=== PATIENT | male | born 1970 | race Hispanic/Latino ===

== ENCOUNTER 2023-02-20 10:27 | Inpatient (IN) | payer SELFPAY ==
[~2023-02-20] VITALS: Ht 180.3 cm; Wt 102.6 kg
[2023-02-20] MEDS ORDERED: OMEPRAZOLE40 MG PO (11:45)
[2023-02-20] MEDS ORDERED: CLARITHROMYCIN500 MG PO (11:45)
[2023-02-20] MEDS ORDERED: AMOXICILLIN500 MG PO (11:45)
[2023-02-20] MEDS ORDERED: METHOCARBAMOL750 MG PO (11:45)
[2023-02-20] MEDS ORDERED: ANUSOL-HC30 GM RC (11:45)
[2023-02-20] MEDS ORDERED: ANUSOL-HC25 MG RC (11:45)
[2023-02-20] MEDS ORDERED: LIDOCAINE HCL 2% LOCAL INJ 5 ML SDV VIAL INJ ONE (12:15)
[2023-02-20] MEDS ORDERED: PROPOFOL IV EMULSION 10 MG/ML 20 ML VIAL ONE (12:15)
[2023-02-20] MEDS ORDERED: POVIDONE IODINE 0.05% 0.05 % ML PO ONE (12:15)
[2023-02-20] MEDS ORDERED: METOCLOPRAMIDE HCL 10 MG/2ML VIAL ONE (12:15)
[2023-02-20] MEDS ORDERED: ONDANSETRON HCL INJ 2MG/ML 2ML 2 MG/ML VIAL ONE (12:15)
[2023-02-20] MEDS ORDERED: FAMOTIDINE 20 MG/2 ML VIAL IV STA (12:48)
[2023-02-20] MEDS ORDERED: IOPAMIDOL 370 MG/ML 100 ML INFUS..BTL INJ ONE (13:03)
[2023-02-20] MEDS ORDERED: FAMOTIDINE 20 MG/2 ML VIAL IV ONE (13:08)
[2023-02-20] MEDS ORDERED: SODIUM CHLORIDE 0.9% 1000ML 1,000 ML IV SCH (13:30)
[2023-02-20] MEDS ORDERED: SODIUM CHLORIDE 0.9% 1000ML 1,000 ML ONE (13:38)
[2023-02-20] MEDS ORDERED: SODIUM CHLORIDE FLUSH 10 ML SYR INJ PRN (15:00)
[2023-02-20 17:02] VITALS: BP 132/79; PULSE 112; RESP 18; TEMP 98.2; O2SAT 97
[2023-02-20] MEDS ORDERED: ONDANSETRON HCL INJ 2MG/ML 2ML 2 MG/ML VIAL IV PRN (18:00)
[2023-02-20 18:12] LABS: HEMATOCRIT 44.8 % (38.2-49.6); HEMOGLOBIN 15.4 g/dL (14.0-18.0)
[2023-02-20] MEDS: SODIUM CHLORIDE 0.45% 1,000 ML IV SCH (18:20)
[2023-02-20 20:00] VITALS: BP_SYST 112; BP_SYST 123; BP_DIAS 81; BP_DIAS 84; PULSE 54; PULSE 64; RESP 18; TEMP 98.4; TEMP 98.7; O2SAT 97; O2SAT 99
[2023-02-20] MEDS: SENNOSIDES 8.6 MG TAB PO SCH (20:44)
[2023-02-20] MEDS: HYDROCORTISONE ACETATE 25 MG/SUPP.RECT SUPP RC SCH (20:44)
[2023-02-20 21:04] VITALS: BP 123/81; PULSE 54; RESP 16; TEMP 98.7; O2SAT 99
[2023-02-21] VITALS (7 sets, daily range): BP systolic 112–148; BP diastolic 59–89; PULSE 51–70; RESP 17–20; TEMP 97.1–98.6; O2SAT 97–100
[2023-02-21 06:51] LABS: BASOPHILS % 0.5 % (0.0-1.0); EOSINOPHILS # (AUTO) 0.1 (0.0-0.4); EOSINOPHILS % 1.6 % (0.0-6.0); HEMATOCRIT 44.8 % (38.2-49.6); HEMOGLOBIN 15.3 g/dL (14.0-18.0); LYMPHOCYTES # (AUTO) 2.8 (1.0-3.2); LYMPHOCYTES % 34.5 % (18.0-39.1); MEAN CORPUSCULAR HEMOGLOBIN 31.9 pg (28-32); MEAN CORPUSCULAR HGB CONC 34.2 g/dL (31-35); MEAN CORPUSCULAR VOLUME 93.5 fL (81-99); MONOCYTES # (AUTO) 0.7 (0.2-0.8); MONOCYTES % 8.3 % (4.4-11.3); NEUTROPHILS # (AUTO) 4.4 (2.1-6.9); NEUTROPHILS % 54.6 % (38.7-80.0); PLATELET COUNT 248 x10e3/uL (140-360); RED BLOOD COUNT 4.79 x10e6/uL (4.3-5.7); RED CELL DISTRIBUTION WIDTH 12.2 % (11.7-14.4)
[2023-02-21 06:59] LABS: ALBUMIN 3.8 g/dL (3.5-5.0); ALBUMIN/GLOBULIN RATIO 1.1 (0.8-2.0); ANION GAP 11.9 mmol/L (8-16); CALCIUM 9.2 mg/dL (8.4-10.2); CREATININE, SERUM 0.9 mg/dL (0.72-1.25); POTASSIUM 3.9 mmol/L (3.5-5.1)
[2023-02-21 09:10] LABS: CHOL/HDL RATIO 4.5 (3.9-4.7)
[2023-02-21] MEDS: HYDROCORTISONE ACETATE 25 MG/SUPP.RECT SUPP RC SCH ×2 (09:58→21:52)
[2023-02-21] MEDS: SENNOSIDES 8.6 MG TAB PO SCH ×2 (09:58→16:57)
[2023-02-21] MEDS: SODIUM CHLORIDE 0.45% 1,000 ML IV SCH (14:48)
[2023-02-22 04:00] VITALS: BP 110/77; PULSE 60; RESP 18; TEMP 98.8; O2SAT 98
[2023-02-22] MEDS: SODIUM CHLORIDE 0.45% 1,000 ML IV SCH ×2 (06:10→16:46)
[2023-02-22 06:46] LABS: BASOPHILS % 0.5 % (0.0-1.0); EOSINOPHILS # (AUTO) 0.1 (0.0-0.4); EOSINOPHILS % 1.7 % (0.0-6.0); HEMATOCRIT 46.6 % (38.2-49.6); HEMOGLOBIN 15.7 g/dL (14.0-18.0); LYMPHOCYTES # (AUTO) 2.8 (1.0-3.2); LYMPHOCYTES % 33.6 % (18.0-39.1); MEAN CORPUSCULAR HGB CONC 33.7 g/dL (31-35); MEAN CORPUSCULAR VOLUME 94.9 fL (81-99); MONOCYTES # (AUTO) 0.7 (0.2-0.8); MONOCYTES % 8.2 % (4.4-11.3); NEUTROPHILS # (AUTO) 4.6 (2.1-6.9); NEUTROPHILS % 55.6 % (38.7-80.0); PLATELET COUNT 229 x10e3/uL (140-360); RED BLOOD COUNT 4.91 x10e6/uL (4.3-5.7); RED CELL DISTRIBUTION WIDTH 12.2 % (11.7-14.4)
[2023-02-22 08:24] VITALS: BP 123/79; PULSE 55; RESP 16; TEMP 98.1; O2SAT 95
[2023-02-22] MEDS: HYDROCORTISONE ACETATE 25 MG/SUPP.RECT SUPP RC SCH ×2 (09:07→21:31)
[2023-02-22] MEDS: SENNOSIDES 8.6 MG TAB PO SCH ×2 (09:07→16:47)
[2023-02-22 13:25] VITALS: BP 126/79; PULSE 55; RESP 18; TEMP 97.9; O2SAT 96
[2023-02-22 16:20] VITALS: BP 126/81; PULSE 63; RESP 18; TEMP 98.3; O2SAT 98
[2023-02-22 21:54] VITALS: BP 143/82; PULSE 63; RESP 17; TEMP 97.7; O2SAT 99
[2023-02-22 22:00] VITALS: BP 143/82; PULSE 63; RESP 17; TEMP 97.7; O2SAT 99
[2023-02-23] VITALS (7 sets, daily range): BP systolic 109–131; BP diastolic 65–95; PULSE 54–84; RESP 17–19; TEMP 98.1–98.4; O2SAT 95–99
[2023-02-23] MEDS ORDERED: BISACODYL 5 MG TAB EC PO STA (00:06)
[2023-02-23] MEDS ORDERED: BISACODYL 5 MG TAB EC PO ONE ×2 (00:30→01:00)
[2023-02-23] MEDS ORDERED: CITRATE OF MAGNESIA 300ML BOTTLE PO ONE ×2 (05:00→09:00)
[2023-02-23] MEDS: SENNOSIDES 8.6 MG TAB PO SCH (08:50)
[2023-02-23] MEDS: HYDROCORTISONE ACETATE 25 MG/SUPP.RECT SUPP RC SCH (08:56)
[2023-02-23] MEDS ORDERED: SENOKOT8.6 MG PO (10:23)
[2023-02-23] MEDS ORDERED: PANTOPRAZOLE SO40 MG PO (10:23)
[2023-02-23] MEDS ORDERED: ONDANSETRON HCL 4 MG ORAL DISINTEGRATING TAB PO PRN (11:30)
[2023-02-23] MEDS: SODIUM CHLORIDE 0.45% 1,000 ML IV SCH (16:18)
== END 2023-02-23 20:22 | disposition home or self-care (01) | DRG 392 ==
LOC: FSED 10:41 → ERHOLD 14:52 → MED/SURG3 16:50 → OBSVTOIN 02-21 14:23
PROVIDERS: ADMIT Internal Medicine; ATTEND Internal Medicine
PROC: 0DBP8ZX Excision of Rectum, Via Natural or Artificial Opening Endoscopic, Diagnostic (ICD-10-PCS; 2023-02-23)
PROC: 0DBM8ZZ Excision of Descending Colon, Via Natural or Artificial Opening Endoscopic (ICD-10-PCS; principal; 2023-02-23 18:20)
DX: K57.30 Diverticulosis of large intestine without perforation or abscess without bleeding (principal); K64.8 Other hemorrhoids; F10.10 Alcohol abuse, uncomplicated; K63.5 Polyp of colon; K62.89 Other specified diseases of anus and rectum; E78.5 Hyperlipidemia, unspecified; R73.03 Prediabetes; F17.210 Nicotine dependence, cigarettes, uncomplicated; Z20.822 Contact with and (suspected) exposure to COVID-19; Z59.6 Low income
CPT/HCPCS: 36415; 45385; 74018; 74177; 80048; 80053; 80061; 80076; 82270; 82553; 83036; 84484; 85014; 85018; 85025; 86677; 88305; 96361; 99284; G0378; J2001; J2405; J2765; J7030; Q9967